=== PATIENT | female | born 1950 | race Caucasian/White ===

== ENCOUNTER → 2016-10-16 | Outpatient (CLI) | payer MEDICARE, BC ==
[~2016-10-16] MED LIST: AMBIEN CR 12.12.5 MG PO; ANORO IH; ASPIRIN 81M81 MG/TA2 PO; ASPIRIN E.C. 8181 MG PO; CYMBALTA 60MG60 MG PO; D-1000 185 MG-11 TAB PO; D-31000 IU PO; DALIRESP500 MCG PO; DESYREL 100MG100 MG PO; DESYREL 50MG50 MG PO; GLUCOTROL10 MG PO; GRALISE600 MG PO; HUMALOG100 U/ML SC; INVOKAMET3 PO; KLONOPIN 0.5MG0.5 MG PO; LANTUS100 U/ML SC; LINZESS145CAP PO; LIPITOR 10MG10 MG PO; LIPITOR 40MG TA40 MG PO; LYRICA 100MG C100 M1 PO; MOBIC15 MG PO; NEURONTIN600 MG/TAB PO; NITRO-DUR0.4 MG/PAT TD; NITROSTAT0.4 MG/TAB SL; NORVASC 10MG10 MG PO; PERCOCET 325 MG1 TAB PO; PERCR 7.5 PO; PLAVIX 75MG TAB75 MG PO; PREVACID 15MG15 M1 PO; PRINZIDE 25 MG-1 TAB PO; PROVENTIL0.09 MG/A1 IH; THEO-DUR 2200 MG/TAB PO; TOPROL XL 25MG25 MG; TOPROL XL 50MG50 MG PO; TOPROL XL100 MG PO; WELLBUTRIN 100100 MG PO
== END ==
LOC: BHSO 07:59
DX: F06.32 Mood disorder due to known physiological condition with major depressive-like episode (principal)

== ENCOUNTER → 2017-04-08 | Outpatient (CLI) | payer MEDICARE, BC | LOC: BHSO 07:57 | DX: F06.32 Mood disorder due to known physiological condition with major depressive-like episode (principal) ==

== ENCOUNTER → 2017-10-14 | Outpatient (CLI) | payer MEDICARE, BC | LOC: BHSO 15:10 | DX: F06.32 Mood disorder due to known physiological condition with major depressive-like episode (principal) | CPT/HCPCS: G0463 ==

== ENCOUNTER → 2017-12-12 | Outpatient (CLI) | payer MEDICARE, BC | LOC: BHSO 10:07 | DX: F06.32 Mood disorder due to known physiological condition with major depressive-like episode (principal) | CPT/HCPCS: G0463 ==

== ENCOUNTER → 2018-05-09 | Outpatient (CLI) | payer MEDICARE, BC | LOC: BHSO 09:58 | DX: F06.32 Mood disorder due to known physiological condition with major depressive-like episode (principal) | CPT/HCPCS: G0463 ==